=== PATIENT | female | born 1970 | race African-American/Black ===

== ENCOUNTER 2019-07-21 22:28 | Emergency (ER) | payer MEDICAID ==
[~2019-07-21] VITALS: Ht 175.3 cm; Wt 97.0 kg
[2019-07-21] MEDS ORDERED: DIPHENHYDRAMINE 25MG CAPSULE PO ONE (23:00)
[2019-07-21] MEDS ORDERED: KETOROLAC 30MG/ML VIAL IM ONE (23:00)
[2019-07-21] MEDS ORDERED: METOCLOPRAMIDE HCL 5MG TABLET PO ONE (23:00)
[2019-07-21 23:49] VITALS: BP 130/83
== END 2019-07-21 23:50 | disposition home or self-care (01) ==
LOC: ER 22:28
DX: R51 Headache (principal); R11.0 Nausea; Z90.49 Acquired absence of other specified parts of digestive tract
CPT/HCPCS: 96372; 99283; J1885; J8597; Q0163